=== PATIENT | female | born 1945 | race Caucasian/White ===

== ENCOUNTER → 2016-08-06 | Outpatient (CLI) | payer OTHER, BC | LOC: FIMAGING 15:17 | PROVIDERS: ATTEND Orthopaedic Surgery | DX: M48.06 Spinal stenosis, lumbar region (principal); M51.17 Intervertebral disc disorders with radiculopathy, lumbosacral region; M51.16 Intervertebral disc disorders with radiculopathy, lumbar region ==

== ENCOUNTER → 2018-04-26 | Outpatient (CLI) | payer OTHER, BC | LOC: FIMAGING 10:13 | PROVIDERS: ATTEND Orthopaedic Surgery | DX: M25.551 Pain in right hip (principal); Z96.641 Presence of right artificial hip joint | CPT/HCPCS: 78315; A9503 ==

== ENCOUNTER 2018-07-05 08:58 | Inpatient (IN) | payer OTHER, BC ==
--- NOTE | 2018-07-05 06:24 | PDHPUP ---
History & Physical Update H&P update statement: This history and physical update is based on an assessment of the patient which was completed after admission or registration (within 24 hours), but prior to the surgery/procedure. H&P update: H&P reviewed & patient examined, no change in patient's condition since H&P completed
[~2018-07-05 08:58] MED LIST: TRANEXAMIC ACID 3,000 MG/50 ML BAG IRR ONE; VANCOMYCIN 1 GM VIAL ONE
[2018-07-05] MEDS ORDERED: ceFAZolin 2 GM/DEXTROSE 100 ML IV ONE (09:25)
[2018-07-05] MEDS ORDERED: ACETAMINOPHEN 325 MG TAB PO ONE (09:25)
[2018-07-05] MEDS ORDERED: FAMOTIDINE 20 MG TAB PO ONE (09:25)
[2018-07-05] MEDS ORDERED: LR 1,000 ML IV ONE (09:25)
[2018-07-05] MEDS ORDERED: DEXAMETHASONE 4 MG/ML VIAL IVP ONE (09:25)
[2018-07-05] MEDS ORDERED: MIDAZOLAM 2 MG/2 ML VIAL IVP ONE (09:38)
[2018-07-05] MEDS ORDERED: PROPOFOL/EMULSION 500 MG/50 ML BOTTLE IV ONE ×2 (09:57→09:58)
[2018-07-05] MEDS ORDERED: PROPOFOL 200 MG/20 ML VIAL ONE (09:57)
[2018-07-05] MEDS ORDERED: LIDOCAINE 2% 5 ML SDV ONE (09:57)
[2018-07-05] MEDS ORDERED: BUPIVACAINE/DEXTROSE 7.5MG/ML 2 ML SPINAL AMP SP ONE (09:57)
[2018-07-05] MEDS ORDERED: ROPIVACAINE HCL 150 MG/30 ML INJ ONE (09:57)
[2018-07-05] MEDS ORDERED: ROPIVACAINE 0.2% 80 MG, EPINEPHrine 0.2 MG, KETOROLAC TROMETHAMINE 30 MG in SYRINGE 0 ML IU ONE (11:00)
[2018-07-05] MEDS ORDERED: TRANEXAMIC ACID 3,000 MG in NS (SYRINGE) 50 ML IRR ONE (11:00)
--- NOTE | 2018-07-05 11:09 | PDANEPAE ---
ANE Past Medical History - Cardiovascular History Hx Hypertension: Yes Hx Arrhythmias: No Hx Chest Pain: No Hx Coronary Artery / Peripheral Vascular Disease: No Hx CHF / Valvular Disease: No Hx Palpitations: No - Pulmonary History Hx COPD: No Hx Asthma/Reactive Airway Disease: No Hx Recent Upper Respiratory Infection: No Hx Oxygen in Use at Home: No Hx Sleep Apnea: No Sleep Apnea Screening Result - Last Documented: Negative Pulmonary History Comment: ASTHMA TRIGGERS CATS/ENVIRONMENT AND BRONCHITIS - Neurologic History Hx Cerebrovascular Accident: No Hx Seizures: No Hx Dementia: No - Endocrine History Hx Diabetes: No - Renal History Hx Renal Disorders: No - Liver History Hx Hepatic Disorders: No - Neurological & Psychiatric Hx Hx Neurological and Psychiatric Disorders: No - Cancer History Hx Cancer: Yes Cancer History Comment: MELANOMA - Congenital Disorder History Hx Congenital Disorders: No - GI History Hx Gastrointestinal Disorders: No - Other Health History Other Health History: OSTEOARTHRITIS - Chronic Pain History Chronic Pain: Yes (LT KNEE) - Surgical History Prior Surgeries: NICOLE CATARACTS. NICOLE TOTAL KNEE. RT TOTAL HIP 2015. HYSTERECTOMY. RT WRIST RECONSTRUCTION. TONSILLECTOMY. ANE Review of Systems Review of Systems: - Exercise capacity METS (RN): 6 METS ANE Patient History - Allergies Allergies/Adverse Reactions: No Known Allergies Allergy (Verified 06/19/18 13:52) - Home Medications Home Medications: Albuterol [Proventil Inhaler HFA (*)] 1 - 2 puffs IH Q4H PRN 06/19/18 [Last Taken Unknown] Escitalopram Oxalate [Lexapro] 15 mg PO HS 06/19/18 [Last Taken 07/04/18] Lisinopril/Hydrochlorothiazide [Zestoretic 20-25 mg Tablet] 1 each PO DAILY 08/04 [Last Taken 07/04/18] - NPO status NPO Since - Liquids (Date): 07/05/18 NPO Since - Liquids (Time): 06:00 NPO Since - Solids (Date): 07/04/18 NPO Since - Solids (Time): 19:00 - Smoking Hx Smoking Status: Never smoked ANE Labs/Vital Signs - Labs Result Diagrams: 07/05/18 09:50 - Vital Signs Blood Pressure: 149/91 Heart Rate: 72 Respiratory Rate: 18 O2 Sat (%): 93 Height: 157.48 cm Weight: 63.503 kg ANE Physical Exam - Airway Mallampati Score: Class 2 Mouth exam: normal dental/mouth exam - Pulmonary Pulmonary: no respiratory distress, no rales or rhonchi, clear to auscultation - Cardiovascular Cardiovascular: regular rate and rhythym, no murmur, rub, or gallop - ASA Status ASA Status: II ANE Anesthesia Plan Anesthesia Plan: spinal Regional Anesthesia: single shot NB
--- NOTE | 2018-07-05 11:10 | POSTANESTH ---
Post Anesthetic Evaluation Cardiovascular Status: Normal, Stable Respiratory Status: Normal, Stable Level of Consciousness/Mental Status: Can Participate in Eval Pain Control: Adequate, Prn Tx Ordered Nausea/Vomiting Control: Adequate, Prn Tx Ordered Complications Possibly Related to Anesthesia: None Noted
[2018-07-05] MEDS ORDERED: ePHEDrine SULFATE 25 MG/5 ML SYR ONE (11:40)
[2018-07-05] MEDS ORDERED: ONDANSETRON 4 MG/2 ML VIAL IVP PRN ×2 (11:42→12:47)
[2018-07-05] MEDS ORDERED: NS 500 ML IV PRN (11:42)
[2018-07-05] MEDS ORDERED: oxyCODONE IR 5 MG TAB PO PRN (11:42)
[2018-07-05] MEDS ORDERED: PHENYLEPHRINE HCL 100 MCG/ML SYR IVP PRN (11:42)
[2018-07-05] MEDS ORDERED: fentaNYL 100 MCG/2 ML INJ IVP PRN (11:42)
[2018-07-05] MEDS ORDERED: MEPERIDINE 25 MG/0.5 ML AMP IVP PRN (11:42)
[2018-07-05] MEDS ORDERED: PROMETHAZINE HCL 25 MG/ML INJ IVP PRN ×2 (11:42→12:47)
[2018-07-05] MEDS ORDERED: LR 500 ML IV PRN (11:42)
[2018-07-05] MEDS ORDERED: NALOXONE HCL 0.4 MG/ML INJ IVP PRN (11:42)
[2018-07-05] MEDS ORDERED: METOCLOPRAMIDE 10 MG/2 ML VIAL IVP PRN ×2 (11:42→12:47)
[2018-07-05] MEDS ORDERED: HYDROmorphONE/DILAUDID 2 MG/ML INJ IVP PRN (11:42)
[2018-07-05] MEDS ORDERED: POLYETHYLENE GLYCOL 3350 17 GM PKT PO PRN (12:47)
[2018-07-05] MEDS ORDERED: diphenhydrAMINE 25 MG CAP PO PRN (12:47)
[2018-07-05] MEDS ORDERED: PROMETHAZINE HCL 25 MG SUPPR PR PRN (12:47)
[2018-07-05] MEDS ORDERED: DIPHENOXYLATE/ATROPINE LOMOTIL 1 TAB PO PRN (12:47)
[2018-07-05] MEDS ORDERED: LACTULOSE 20 GM/30 ML UDCUP PO PRN (12:47)
[2018-07-05] MEDS ORDERED: CYCLOBENZAPRINE 10 MG TAB PO PRN (12:47)
[2018-07-05] MEDS ORDERED: BISACODYL 10 MG SUPP PR PRN (12:47)
[2018-07-05] MEDS ORDERED: MAGNESIUM HYDROXIDE 30 ML UDCUP PO PRN (12:47)
[2018-07-05] MEDS ORDERED: TEMAZEPAM 15 MG CAP PO PRN (12:47)
[2018-07-05] MEDS ORDERED: ONDANSETRON DISINTEGRATING 4 MG TAB PO PRN (12:47)
[2018-07-05] MEDS ORDERED: LR 1,000 ML IV SCH (13:00)
[2018-07-05] MEDS ORDERED: ALBUTEROL 60 PUFFS/8 GM MDI IH PRN (13:30)
--- NOTE | 2018-07-05 14:07 | POSTOPPROG ---
Post Op Note Date of Operation: 07/05/18 Surgeon: Tina Brown Patient Companion: Mckenzie Skinner and Alexus Brown PA-C Anesthesiologist: Dr. Wes De La Torre Anesthesia: Spinal, Other (Specify) (adductor canal block) Pre-op Diagnosis: left knee OA Post-op Diagnosis: same Indication: left knee pain Procedure: LTKA Findings: severe OA of left knee Inf/Abcess present in the surg proc area at time of surgery?: No EBL: 50-100
[2018-07-05] MEDS: oxyCODONE IR 5 MG TAB PO PRN ×2 (16:53→20:15)
[2018-07-05] MEDS: ACETAMINOPHEN 325 MG TAB PO SCH (18:32)
[2018-07-05] MEDS: ceFAZolin 2 GM/DEXTROSE 100 ML IV SCH (18:36)
[2018-07-05] MEDS: SENNOSIDES/DOCUSATE SODIUM TAB PO SCH (20:16)
[2018-07-05] MEDS: ASPIRIN 81 MG CHEWABLE TAB PO SCH (20:16)
[2018-07-05] MEDS: FAMOTIDINE 20 MG TAB PO SCH (20:16)
[2018-07-05] MEDS ORDERED: ESCITALOPRAM OXALATE 10 MG TAB PO SCH (21:00)
[2018-07-06] MEDS: ACETAMINOPHEN 325 MG TAB PO SCH ×2 (01:10→06:56)
[2018-07-06] MEDS: ceFAZolin 2 GM/DEXTROSE 100 ML IV SCH (01:10)
[2018-07-06] MEDS: oxyCODONE IR 5 MG TAB PO PRN ×3 (05:44→12:36)
[2018-07-06 07:55] VITALS: BP 129/85
[2018-07-06] MEDS ORDERED: LISINOPRIL/HCTZ 10/12.5 MG 1 EA TAB PO SCH (09:00)
[2018-07-06] MEDS: ASPIRIN 81 MG CHEWABLE TAB PO SCH (09:18)
[2018-07-06] MEDS: SENNOSIDES/DOCUSATE SODIUM TAB PO SCH (09:18)
[2018-07-06] MEDS: FAMOTIDINE 20 MG TAB PO SCH (09:18)
--- NOTE | 2018-07-06 09:24 | ASMTLACE ---
LACE Length of stay for Answers: 2 days current admission Acuity / Level of Answers: Yes Care: Did the patient have an inpatient admission? Comorbidities - select Answers: Opioid dependence all that apply / Chronic pain Other Notes: HTN # of Emergency department Answers: 0 visits in the last 6 months Score: 10 Date Signed: 07/06/2018 09:22 AM Electronically Signed By:TIERRA Lyn
--- NOTE | 2018-07-06 09:24 | SOAPPROG ---
SOAP Progress Note Assessment/Plan: Assessment: Patient is doing well POD 1 s/p L TKA Pain management: pain is well controlled on oral pain meds. It does not appear that adductor canal block is still working. pain manageable on oral pain meds VTE ppx: recommend aspirin 81 mg BID for 4 weeks, cont ZORAN and SCDs Anemia: level is expected initially postop. Asymptomatic. Continue to monitor postop urinary retention: straight cath'd yesterday, resolved today D/c planning: Patient has done better than anticipated and would like to be discharged to home today. Patient must be released from PT before discharge to home. Plan: 07/06/18 09:22 Subjective: patient is doing well today, denies SOb ,chest pain and N/V Objective: Vital Signs Temp Pulse Resp BP Pulse Ox 36.8 C 69 16 129/85 H 96 07/06/18 07:54 07/06/18 07:54 07/06/18 07:54 07/06/18 07:54 07/06/18 07:54 Laboratory Results 07/06/18 04:27 07/05/18 09:50 07/05/18 07/06/18 07/07/18 05:59 05:59 05:59 Intake Total 1630 Output Total 1730 Balance -100 LLE: incision dressing is clean and dry, NVI, +pf/df ICD10 Worksheet Patient Problems: Problems Problem Status Onset Primary localized osteoarthritis of left knee Acute
--- NOTE | 2018-07-06 11:18 | GDS ---
[f rep st] DISCHARGE SUMMARY ADMISSION DIAGNOSIS: Left knee osteoarthritis. DISCHARGE DIAGNOSIS: Left knee osteoarthritis. PROCEDURE: Left total knee arthroplasty. VTE PROPHYLAXIS: Recommend aspirin 81 mg for 4 weeks. BRIEF DESCRIPTION OF HOSPITAL STAY: Patient was admitted for an elective joint arthroplasty. The pa tient tolerated the procedure well and has passed physical therapy. The patient was given appropriat e antibiotic prophylaxis and venous thromboembolism prophylaxis. The patient's pain was well control led on oral pain medication, patient was holding down food, and had urinated. Decision was made to d ischarge the patient. The patient was given post-operative prescriptions pre-operatively. PLAN: To follow up with Dr. Brown at [facility] July 27 at 10 a.m. /[id number]/MODL
--- NOTE | 2018-07-06 20:05 | GOP ---
[f rep st] OPERATIVE REPORT DATE OF OPERATION: 07/05/2018 SURGEON: Kushal Brown MD EDGE GLUER: 1. Alexus Brown PA-C. 2. Liana Skinner PA-C. ANESTHESIA: Spinal. PREOPERATIVE DIAGNOSIS: Left knee osteoarthritis and failed unicompartmental knee arthroplasty. POSTOPERATIVE DIAGNOSIS: Left knee osteoarthritis and failed unicompartmental knee arthroplasty. PROCEDURE PERFORMED: Left total knee arthroplasty FINDINGS: ESTIMATED BLOOD LOSS: 30 cc. INDICATIONS: This is a 72-year-old female with severe and progressive pain and deformity of the left knee unresponsive to conservative care. Risks and benefits of the surgical intervention were explai brandyn in detail. DESCRIPTION OF PROCEDURE: The patient was brought to the operative room and placed on the table in t he supine position. Spinal anesthesia was induced without difficulty. A pneumatic tourniquet was ap plied about the left proximal thigh, and the leg was prepped and draped in a sterile fashion. The le g abdi was applied. After exsanguination by elevation the tourniquet was inflated to 250 mm of chante cury. Incision was made anterior medial from the tibial tuberosity to a point 2 cm proximal to the superior pole of the patella. Medial parapatellar arthrotomy was carried out from the superior pole of the p atella and posteriorly in line with the fibers of the Type II VMO. The medial collateral ligament wa s elevated and the infrapatellar fat pad was resected. The patella was everted and the articular surface was excised. A 32 mm patellar button was placed. T he distal femoral guide hole was drilled and the 6 degree alignment chris was placed. An 8 mm distal f emoral cut was made without difficulty. Attention was turned to the tibia and a standard 9 mm cut based on the lateral tibial condyle was per formed. The tibial articular surface was excised without difficulty. Attention was turned back to the femur and a size 2 Triathlon femoral cutting block was positioned. Anterior, posterior, and chamfer cuts were made, followed by the intercondylar box cut. The knee was extended and the remnants of the medial and lateral meniscus were excised. The posterio r capsule was injected with ropivacaine, epinephrine and Toradol. A size 3 universal baseplate tibia l tray was positioned. Trial reduction was then carried out. There was excellent range of motion, a lignment, and stability using the 12 mm polyethylene. All trials were then removed. The joint was thoroughly irrigated and carefully dried. Two packages of cement and 2 grams of vancomycin were mixed in the vacuum mixer and placed on the fixation surface s of all surfaces of the components. The components were implanted and all excess cement was thoroug hly removed. The permanent 12 mm polyethylene was placed without difficulty. The tourniquet was deflated and all bleeders were coagulated. The wound was thoroughly irrigated and closed using interrupted sutures of 2-0 Vicryl for the joint capsule. The subcu was closed with 3-0 Vicryl and the skin with 4-0 Monocryl. Dermabond and Steri-Strips were applied followed by a compre ssive dressing. The patient was then moved from the operating room to the recovery room in good cond ition, having tolerated the procedure well. Prior unicompartmental knee arthroplasty components were removed during the surgery. PATHOLOGY: Severe tricompartmental osteoarthritis. /[id number]/MODL
== END 2018-07-06 13:09 | disposition home or self-care (01) | DRG 470 ==
LOC: F3N 08:58
PROVIDERS: ADMIT Orthopaedic Surgery; ATTEND Orthopaedic Surgery
PROC: 0SRD0J9 Replacement of Left Knee Joint with Synthetic Substitute, Cemented, Open Approach (ICD-10-PCS; principal; 2018-07-05 11:00)
DX: M17.12 Unilateral primary osteoarthritis, left knee (principal); R33.9 Retention of urine, unspecified; I10 Essential (primary) hypertension
CPT/HCPCS: 97110-GP; 97116-GP; 97161-GP; C1713; J0171; J0690; J1100; J1885; J2250; J2704; J2795; J3370